=== PATIENT | male | born 2000 | race Two or more races ===

== ENCOUNTER 2022-07-09 08:39 | Emergency (ER) | payer OTHER, SELFPAY ==
--- NOTE | ~2022-07-09 | XR_ITS ---
EXAMINATION: XR HAND, RIGHT CLINICAL INFORMATION: Pain and swelling after punching wall COMPARISON: None available. TECHNIQUE: PA, lateral, and oblique views of the right hand. FINDINGS: There is a mildly displaced fracture base of the right fifth metacarpal with superior medial displacement of the larger distal fracture fragment by approximately 4 mm. No dislocation is noted. Is difficult to tell whether this may be an intra-articular fracture or not. There is some associated soft tissue swelling. XR/XR hand RT min 3V IMPRESSION: Fracture base of the right fifth metacarpal which is mildly displaced..
[2022-07-09 08:52] VITALS: BP 147/76; PULSE 73; RESP 14; TEMP 36.5; O2SAT 98; BMI 18.0
[2022-07-09] MEDS: Ibuprofen 600 MG TABLET PO (09:01)
--- NOTE | 2022-07-09 09:52 | ED_ITS ---
HPI - Extremity Problem General Chief complaint: Extremity Injury, Upper Stated complaint: right hand pain Time Seen by Provider: 07/09/22 09:21 History of Present Illness HPI Narrative: Patient complains of right hand pain and swelling after punching a wall yesterday There is no other injury no other complaint no numbness weakness or tingling he denies any laceration Related Data Previous Rx's Medication Instructions Recorded ibuprofen 600 mg tablet 600 mg PO Q6H PRN pain #20 tabs 07/09/22 Allergies Allergy/AdvReac Type Severity Reaction Status Date / Time seafood Allergy Difficulty Verified 07/12/22 09:57 Breathing [facility] Past Medical History Source: nursing notes reviewed Social History Social History (Updated 07/12/22 @ 10:23 by Tab Robison) Alcohol intake: former Patient Tobacco Use Status: Former Tobacco user Current occupational status: employed Current occupation: Right hand dominat/ Plumbing Physical Exam Vital Signs: Vital Signs: Last Vital Signs Temp 97.7 F 07/09/22 08:52 Pulse 73 07/09/22 08:52 Resp 14 07/09/22 08:52 BP 147/76 H 07/09/22 08:52 Pulse Ox 98 07/09/22 08:52 O2 Del Method Room Air 07/09/22 08:52 BMI result Body Mass Index 18.0 General appearance no distress Head normocephalic atraumatic Neck is supple nontender Respiratory no distress Extremities the right hand has tenderness ecchymosis and mild swelling over the ulnar aspect of the hand, fingers have full range of motion no evidence of any tendon deficit arm most tenderness is localized over 4th and 5th metatarsal area, the wrist has full range of motion, neurovascular intact distal, skin is intact Other extremities normal Course Course Course Narrative: Patient with right hand injury after punching the wall yesterday X-ray showed displaced fracture mildly displaced at the base of the right 5th metacarpal Ulnar gutter splint was placed, neurovascular intact after and patient is referred to orthopedist for definitive care Medications Administered Discontinued Medications Generic Name Dose Route Start Last Admin Trade Name Freq PRN Reason Stop Dose Admin Ibuprofen 600 mg 07/09/22 08:57 07/09/22 09:01 Ibuprofen 600 Mg Tablet PO 07/09/22 08:58 600 mg ONCE ONE Administration Discharge Plan Discharge Clinical Impression: Fracture of right hand Patient Disposition: Home, Self-Care Additional Instructions: X-ray showed a broken right hand, we placed a temporary splint on it but most important is follow with orthopedist for best care, they will see if you need a cast or surgery Return any time any worse condition or concerns Elevate the hand and Motrin if needed Prescriptions: New ibuprofen 600 mg tablet 600 mg PO Q6H PRN (Reason: pain) Qty: 20 0RF Referrals: Corey Reddy MD [Physician] - (Right 5th metacarpal fracture) Interventions: ED Discharge Assessment Last Done: 07/09/22 11:19 Discharge Date/Time: 07/09/22 11:20
--- NOTE | 2022-07-09 10:52 | MHC.EDTECH ---
ulnar gutter splint was placed with orders from PA. patient tolerated well
== END 2022-07-09 11:20 | disposition home or self-care (01) ==
PROVIDERS: Emergency Provider Emergency Medicine
DX: S62.316A Displaced fracture of base of fifth metacarpal bone, right hand, initial encounter for closed fracture (principal); W22.09XA Striking against other stationary object, initial encounter; Y93.9 Activity, unspecified; Y92.039 Unspecified place in apartment as the place of occurrence of the external cause; Y99.9 Unspecified external cause status
CPT/HCPCS: 29125; 73130; 99283; 99284

== ENCOUNTER 2022-07-12 13:27 | Outpatient (REF) | payer OTHER, SELFPAY ==
--- NOTE | ~2022-07-12 | XR_ITS ---
EXAMINATION: XR HAND, RIGHT CLINICAL INFORMATION: Right hand pain. COMPARISON: July 09, 2022. TECHNIQUE: PA, lateral, and oblique views of the right hand. XR/XR hand RT min 3V FINDINGS/IMPRESSION: Examination again demonstrates a mildly impacted fracture at the base of the right fifth metacarpal bone. The proximal fragment may be displaced medially approximately 0.2 cm relative to the main, distal fragment. No bony callus formation is appreciated at this time. The findings appear grossly similar compared with July 09, 2022. No other fracture or dislocation is appreciated. Bony mineralization appears preserved.
== END 2022-07-12 13:28 | disposition home or self-care (01) ==
LOC: HO.HOSX 13:27
PROVIDERS: Visit Provider Physician Assistant
DX: S62.306A Unspecified fracture of fifth metacarpal bone, right hand, initial encounter for closed fracture (principal)
CPT/HCPCS: 29085; 73130; 99202

== ENCOUNTER 2022-08-02 07:27 | Outpatient (REF) | payer OTHER, SELFPAY ==
--- NOTE | ~2022-08-02 | XR_ITS ---
EXAMINATION: XR HAND, RIGHT CLINICAL INFORMATION: Right hand pain. COMPARISON: 07/12/2022, July 09, 2022. TECHNIQUE: PA, lateral, and oblique views of the right hand. FINDINGS: Redemonstration of mildly impacted fracture at the base of the fifth metacarpal. The proximal fragment again appears to be possibly displaced slightly medially. Fracture line is less conspicuous, suggesting some interval callus formation, although visualization limited due to overlying bony structures. XR/XR hand RT min 3V IMPRESSION: Healing fracture base of fifth metacarpal. .
== END 2022-08-02 07:28 | disposition home or self-care (01) ==
LOC: HO.HOSX 07:27
PROVIDERS: Visit Provider Physician Assistant
DX: S62.306A Unspecified fracture of fifth metacarpal bone, right hand, initial encounter for closed fracture (principal); W22.8XXA Striking against or struck by other objects, initial encounter; Y93.9 Activity, unspecified; Y92.9 Unspecified place or not applicable; Y99.9 Unspecified external cause status
CPT/HCPCS: 29085; 73130; 99212

== ENCOUNTER 2022-08-26 10:29 | Outpatient (AMB) | payer OTHER, SELFPAY ==
--- NOTE | 2022-08-26 10:44 | A.OFFVIS_ITS ---
Intake Vital Signs 08/26/22 10:46 Height 6 ft 2 in Weight 140 lb BMI 18.0 Handedness Right Intake Visit Reasons: OV - fifth metacarpal fx, DOI 07/08/22 Intake Note: Danny is a 21 year old right hand dominant male who presents today for a follow up for his right hand fx, 07/08/22. Cast was removed w/ repeat x rays. Patient reports no pain at the moment. Denies numbness and tingling. Allergies seafood Allergy (Verified 08/26/22 10:44) Difficulty Breathing HPI OV - fifth metacarpal fx, DOI 07/08/22 HPI Details 21-year-old male who presents in the office today for a follow up of his right 5th metacarpal fracture, which occurred on 07/08/2022 status post punching a wall. The patient reports no pain while in the office today. He denies numbness or tingling. [facility] Social History Alcohol intake: former Patient Tobacco Use Status: Former Tobacco user Current occupational status: employed Current occupation: Right hand dominat/ Plumbing Review of Systems Const All systems reviewed & are unremarkable except as noted in HPI and below Physical Exam Vital Signs: BMI result Body Mass Index 18.0 Const General: cooperative and no acute distress Orientation/consciousness: patient oriented x3 Resp Effort & Inspection: normal respiratory effort and able to speak in complete sentences Cardio Peripheral pulses: Peripheral pulses 2+ throughout Neuro General: patient oriented x3 Extrem Other: Right hand: Normal to inspection. No ecchymosis, erythema, or edema. Able to perform full finger flexion, extension, abduction, adduction, finger cross, okay sign, and thumbs up without deficit. Able to make a closed fist. No tenderness to palpation at the base of the 5th metacarpal at the fracture site. Sensation intact. Capillary refill is brisk. Radial pulse intact. Psych Mental Status: mental status grossly normal Assessment & Plan Assessment & Plan (1) Fracture of fifth metacarpal bone of right hand: Code(s): S62.306A - Unspecified fracture of fifth metacarpal bone, right hand, initial encounter for closed fracture Plan Mr. Lund is a 21-year-old male who presents in the office today for a follow up of his right 5th metacarpal fracture, which occurred on 07/08/2022 status post punching a wall. The patient reports no pain while in the office today. He denies numbness or tingling. The patient was explained he should not return to basketball for an additional 4 weeks. He will continue to work at home on ROM. Exercises were demonstrated while in the office today. He can call the office if he feels he needs formal physical therapy Follow up will be PRN, or sooner if needed. X-rays of the right hand which were obtained while in the office today and were reviewed by me, Pearl Sauceda PA-C, revealed routine healing of a right 5th metacarpal fracture. Orders: Orders XR hand RT min 3V Today M79.643 - Pain in unspecified hand Patient Instructions: Scribed for Pearl Sauceda PA-C by Carla Callaway medical charge entry specialist, on 08/26/2022 at 11:00 am, EST. Your attestation Coding Level of Care Code Global (34708) Diagnoses Fracture of fifth metacarpal bone of right hand S62.306A
[2022-08-26 10:46] VITALS: BMI 18.0
== END 2022-08-26 12:14 | disposition home or self-care (01) ==
PROVIDERS: Visit Provider Physician Assistant
DX: S62.306A Unspecified fracture of fifth metacarpal bone, right hand, initial encounter for closed fracture (principal)
CPT/HCPCS: 99024

== ENCOUNTER 2022-08-26 11:54 | Outpatient (REF) | payer OTHER, SELFPAY ==
--- NOTE | ~2022-08-26 | XR_ITS ---
EXAMINATION: XR HAND, RIGHT CLINICAL INFORMATION: Right hand pain. COMPARISON: 08/02/2022 and studies dating back to 07/09/2022. TECHNIQUE: PA, lateral, and oblique views of the right hand. FINDINGS: There is again noted to be a healing fracture base of the right 5th metacarpal without significant displacement appreciated. Fracture line is still evident but not as well seen and there is the appearance of some degree of bony union. No other fractures or dislocation identified. XR/XR hand RT min 3V IMPRESSION: No change in alignment of healing right 5th metacarpal base fracture.
== END 2022-08-26 11:55 | disposition home or self-care (01) ==
LOC: HO.HOSX 11:54
PROVIDERS: Visit Provider Physician Assistant
DX: S62.306D Unspecified fracture of fifth metacarpal bone, right hand, subsequent encounter for fracture with routine healing (principal)
CPT/HCPCS: 73130

== ENCOUNTER 2022-11-11 09:01 | Outpatient (REF) | payer OTHER, SELFPAY | END 2022-11-11 09:02 | disposition home or self-care (01) | LOC: HO.LAB 09:01 | PROVIDERS: PCP Family Medicine Adult Medicine; Visit Provider Family Medicine Adult Medicine | DX: Z91.013 Allergy to seafood (principal) | CPT/HCPCS: 36415; 86003 ==

== ENCOUNTER 2023-04-06 15:02 | Emergency (ER) | payer OTHER, SELFPAY ==
--- NOTE | ~2023-04-06 | XR_ITS ---
EXAMINATION: XR CHEST CLINICAL INFORMATION: Chest pain and cough COMPARISON: None available. TECHNIQUE: Frontal view of the chest was obtained. FINDINGS: No significant abnormality is noted involving the heart, lungs, mediastinum, bony thorax or soft tissues. XR/XR chest 1V IMPRESSION: Unremarkable chest examination.
[2023-04-06 15:13] VITALS: BP 143/89; PULSE 76; RESP 16; TEMP 37; O2SAT 98; BMI 16.7
--- NOTE | 2023-04-06 15:13 | ED_ITS ---
HPI - General Adult General Chief complaint: Upper Respiratory Symptoms Stated complaint: cough, work told him he should come in Time Seen by Provider: 04/06/23 15:54 Source: patient Mode of arrival: ambulatory Limitations: no limitations History of Present Illness HPI narrative: Patient is a 22 yo, otherwise healthy, male presenting with a 4 day history of a cough, body aches, and chest pain. MD complaint: Flu-like symptoms Onset (ago): day(s) (4) Severity: mild Severity scale (1-10): 2 Relieving factors: none Exacerbating factors: none Associated symptoms: chest pain and cough Treatments prior to arrival: none Related Data Previous Rx's Medication Instructions Recorded ibuprofen 600 mg tablet 600 mg PO Q6H PRN pain #20 tabs 07/09/22 Allergies Allergy/AdvReac Type Severity Reaction Status Date / Time seafood Allergy Difficulty Verified 08/26/22 10:44 Breathing Review of Systems Constitutional: Constitutional: Reports no additional constitutional complaints, Reports body ache(s), Denies chills, Denies fever(s) and Denies night sweats Eyes: Eyes: Reports no additional eye complaints, Denies blurry vision, Denies change in vision, Denies diplopia, Denies eye discharge, Denies loss of vision and Denies eye pain ENT: Denies dizziness Cardiovascular: Cardiovascular: Reports no additional cardiovascular complaints, Reports chest pain, Denies lightheadedness, Denies Loss of Consciousness and Denies dyspnea Respiratory: Respiratory: Reports no additional respiratory complaints, Reports cough and Denies dyspnea Gastrointestinal: Gastrointestinal: Reports no additional gastrointestinal complaints, Denies abdominal pain, Denies melena, Denies hematochezia, Denies change in bowel habits and Denies change in stool character Genitourinary: Genitourinary: Reports no additional male genitourinary complaints, Denies hematuria, Denies oliguria, Denies difficulty urinating, Denies dysuria, Denies urinary frequency, Denies urinary hesitancy, Denies urinary incontinence and Denies urinary urgency Musculoskeletal: Musculoskeletal: Reports no additional musculoskeletal complaints, Denies numbness and Denies tingling Neurologic: Denies dizziness, Denies loss of vision, Denies numbness and Denies tingling Psychiatric: Psychiatric: Reports no additional psychiatric complaints Endocrine: Endocrine: Reports no additional endocrine complaints Hematologic/Lymphatic: Hematologic/Lymphatic: Reports no additional hematologic/lymphatic complaints Allergic/Immunologic: Allergic/Immunologic: Reports no additional allergic/immunologic complaints PMFSH Past Medical History Attestation statement: The following information was validated with the patient. Source: old records reviewed and nursing notes reviewed Social History Social History Alcohol intake: former Patient Tobacco Use Status: Former Tobacco user Advance Directives: No Advance Directives Information Provided: No Current occupational status: employed Current occupation: Right hand dominat/ Plumbing Physical Exam ED Vital Signs: Vital Signs - 24 hr 04/06/23 15:13 Temperature 98.6 F Pulse Rate 76 Respiratory Rate 16 Blood Pressure 143/89 H Pulse Oximetry 98 Oxygen Delivery Method Room Air BMI result Body Mass Index 16.7 Const General: cooperative, no acute distress, alert and awake Nutritional Appearance: well nourished Orientation/consciousness: patient oriented x3 Limitations: no limitations HENMT Head: Yes normal to inspection and Yes atraumatic Ears: hearing grossly normal bilaterally and external ears normal General nose exam: Normal external nose present, no nasal discharge noted and no epistaxis Face and sinus: Yes normal facial exam, No abrasion and No laceration Mouth: Normal oral and palatal mucosa present, no drooling and no muffled voice Eyes General: appearance normal, both eyes and all related structures Periorbital: periorbital findings normal Eyelids: Yes eyelids normal Conjunctivae: conjunctivae normal Pupils: Equal, round and reactive pupils present EOM: EOMs intact bilaterally Neck Neck: Yes normal visual inspection, Yes full ROM and Yes no lymphadenopathy Chest Chest palpation & inspection: normal inspection of the chest Resp Effort & Inspection: normal respiratory effort and able to speak in complete sentences Auscultation: clear to auscultation bilaterally GI Inspection: Yes normal to inspection Neuro General: patient oriented x3 and moves all extremities Cranial nerves: Yes Equal, round and reactive pupils present Cognition (Neuro): normal cognition Motor exam (neuro): 5/5 motor strength present throughout Sensory Exam: Normal double simultaneous stimulation for sensation Coordination: [id number] test normal Extrem General: Yes normal to inspection, Yes full ROM and Yes capillary refill normal Psych Appearance: grossly normal Mental Status: mental status grossly normal Affect: normal affect Attitude: cooperative Thought process: Normal thought process present Thought content: Normal thought content present Insight: Good insight present (Psych) Course Course Course Narrative: This is a rapid medical exam: Additional HPI, ROS, PE not included below will be deferred to primary provider. Patient is a 22-year old male presenting to the ED with complaint of cough, chest pain, and body aches for the past few days. Was advised by work to come in for evaluation. Plan: EKG, viral swabs, cxr Medications Administered Discontinued Medications Generic Name Dose Route Start Last Admin Trade Name Freq PRN Reason Stop Dose Admin Dexamethasone Sodium Phosphate 10 mg 04/06/23 16:45 04/06/23 16:56 Dexamethasone Sod Phosphate 10 Mg/Ml Vial PO 04/06/23 16:46 10 mg ONCE ONE Administration Medical Decision Making Medical Decision Making [facility] Narrative: Patient is a 22 year old assigned male at with no reported medical history presenting to the emergency department today with a cough, body aches, and chest wall pain. Patient's physical exam was unremarkable. Patient's EKG was unremarkable. Patient's chest x-ray showed no acute process. Patient's Influenza and RSV tests were poistive. Patient's COVID-19 test was negative. I explained my physical exam findings as well as all test results to the patient. I answered all questions asked by the patient. I stressed the importance of the patient taking his medication as prescribed. I stressed the importance of the patient following up with his primary care provider. I stressed the importance of the patient returning to the emergency department immediately if his symptoms were to worsen or if he were to develop any dizziness, shortness of breath, difficulty breathing, chest pain, blurry vision, loss of vision, nausea, vomiting, abdominal pain, fever, chills, back pain, or any other complaints. Patient verbalized agreement and understanding with this treatment plan and disc harge. Differential Diagnosis Differential Diagnoses: The differential diagnosis associated with the presentation includes COVID-19 Influenza RSV Pneumonia Chest wall pain Admission/Observation Consideration of admission/observation: Escalation of care including adm ission/observation considered Patient would have been admitted to the hospital had his work up had any findings where hospital admission was appropriate and his clinical presentation warranted hospital admission. Lab Data [facility] Lab Attestation statement: I reviewed the patient's lab results. My interpretation of these results are in the [facility] Rationale portion of this note. Labs: Lab Results 04/06/23 Range/Units 15:37 Influenza Type A (PCR) POSITIVE A (Negative) Influenza Type B (PCR) NEGATIVE (Negative) RSV RNA Qual (PCR) POSITIVE A (Negative) SARS-CoV-2 RNA (RT-PCR) NEGATIVE (Negative) Independent Interpretation I performed an independent interpretation of an: EKG and Plain X-Ray Interpretation: My interpretation is in agreement with the radiologist's impression of this imaging study. EXAMINATION: XR CHEST CLINICAL INFORMATION: Chest pain and cough COMPARISON: None available. TECHNIQUE: Frontal view of the chest was obtained. FINDINGS: No significant abnormality is noted involving the heart, lungs, mediastinum, bony thorax or soft tissues. XR/XR chest 1V IMPRESSION: Unremarkable chest examination. Dictated By: Lior Ibrahim MD Signed By: Electronically signed by Lior Ibrahim MD 04/06/23 1551 Vent. Rate: 067 BPM Atrial Rate: 067 BPM P-R Int: 142 ms QRS Dur: 108 ms QT Int: 376 ms P-R-T Axes: 050 054 066 degrees QTc Int: 397 ms Normal sinus rhythm with sinus arrhythmia Normal ECG No previous ECGs available DD/ [id number] Radiology Impression Discussion of test interpretation with radiology: I have reviewed the radiologist's reading. Discharge Plan Discharge Clinical Impression: Respiratory syncytial virus (RSV), Influenza Patient Disposition: Home, Self-Care Instructions: Respiratory Syncytial Virus (ED), Influenza (DC) Additional Instructions: Follow up with your primary care provider. Return to the emergency department immediately if your symptoms worsen or if you develop any dizziness, shortness of breath, difficulty breathing, chest pain, blurry vision, loss of vision, nausea, vomiting, abdominal pain, fever, chills, back pain, or any other complaints. Prescriptions: No Action ibuprofen 600 mg tablet 600 mg PO Q6H PRN (Reason: pain) Qty: 20 0RF Referrals: [facility] Family Medicine [Provider Group] (Call to establish and follow up with a primary care provider. If you already have a primary care provider, please follow up with them.) [facility] [Provider Group] (Call to establish and follow up with a primary care provider. If you already have a primary care provider, please follow up with them.) [facility] [Provider Group] (Call to establish and follow up with a primary care provider. If you already have a primary care provider, please follow up with them.) Stand Alone Forms: Work/School Release Interventions: ED Discharge Assessment Last Done: 04/06/23 16:59 Discharge Date/Time: 04/06/23 17:01 Print Language: Malay
--- NOTE | 2023-04-06 15:14 | ECG_ITS ---
Test Reason : CP Blood Pressure : / mmHG Vent. Rate : 067 BPM Atrial Rate : 067 BPM P-R Int : 142 ms QRS Dur : 108 ms QT Int : 376 ms P-R-T Axes : 050 054 066 degrees QTc Int : 397 ms Normal sinus rhythm with sinus arrhythmia Normal ECG No previous ECGs available Referred By: Akanksha Monroy Electronically Signed By:NITA BLANK
[2023-04-06 16:42] LABS: Influenza A PCR POSITIVE (Negative); Influenza B PCR NEGATIVE (Negative); Resp Syncy Virus RNA Qual PCR POSITIVE (Negative); SARS COV2 PCR INHOUSE NEGATIVE (Negative)
[2023-04-06] MEDS: dexAMETHasone sod phosphate 10 MG/ML VIAL PO (16:56)
== END 2023-04-06 17:01 | disposition home or self-care (01) ==
PROVIDERS: Registered Nurse Emergency; Emergency Provider Emergency Medicine
DX: J11.1 Influenza due to unidentified influenza virus with other respiratory manifestations (principal); B97.4 Respiratory syncytial virus as the cause of diseases classified elsewhere; Z11.52 Encounter for screening for COVID-19; Z20.828 Contact with and (suspected) exposure to other viral communicable diseases
CPT/HCPCS: 0241U; 71045; 93005; 99283; 99284; J1100

== ENCOUNTER → 2023-04-06 15:14 | Outpatient (BNV) | payer SELFPAY | PROVIDERS: Emergency Provider Emergency Medicine; Visit Provider Internal Medicine | DX: I49.9 Cardiac arrhythmia, unspecified (principal) | CPT/HCPCS: 93010 ==